=== PATIENT | female | born 1955 | race Caucasian/White ===

== ENCOUNTER 2017-11-02 10:30 | Outpatient (CLI) | payer MEDICARE ==
[2017-11-02 10:22] VITALS: BP 112/67
[~2017-11-02 10:30] MED LIST: CEPH500C5 PO; ONDA4TAB6 PO; SULF1TAB49 PO
== END 2017-11-02 11:45 | disposition home or self-care (01) ==
LOC: ORTHO 10:30
PROVIDERS: ATTEND Nurse Practitioner Family
DX: S82.831A Other fracture of upper and lower end of right fibula, initial encounter for closed fracture (principal); S82.391A Other fracture of lower end of right tibia, initial encounter for closed fracture; I10 Essential (primary) hypertension; E11.9 Type 2 diabetes mellitus without complications; Z88.8 Allergy status to other drugs, medicaments and biological substances; Z98.84 Bariatric surgery status; W01.0XXA Fall on same level from slipping, tripping and stumbling without subsequent striking against object, initial encounter; Y93.89 Activity, other specified; Y92.89 Other specified places as the place of occurrence of the external cause; Y99.8 Other external cause status
CPT/HCPCS: 73610; 99213; A4590

== ENCOUNTER 2017-11-16 11:22 | Outpatient (CLI) | payer MEDICARE ==
[2017-11-16 11:22] VITALS: BP 124/74
[~2017-11-16 11:22] MED LIST changes: -SULF1TAB49 PO
== END 2017-11-16 11:46 | disposition home or self-care (01) ==
LOC: ORTHO 11:22
PROVIDERS: ATTEND Nurse Practitioner Family
DX: S82.61XD Displaced fracture of lateral malleolus of right fibula, subsequent encounter for closed fracture with routine healing (principal); M77.31 Calcaneal spur, right foot; I10 Essential (primary) hypertension; E11.9 Type 2 diabetes mellitus without complications; M79.7 Fibromyalgia; M19.90 Unspecified osteoarthritis, unspecified site; Z88.6 Allergy status to analgesic agent; Z98.84 Bariatric surgery status; W01.198D Fall on same level from slipping, tripping and stumbling with subsequent striking against other object, subsequent encounter
CPT/HCPCS: 73610; 99213; A4590

== ENCOUNTER 2017-12-01 11:12 | Outpatient (CLI) | payer MEDICARE ==
[2017-12-01 11:17] VITALS: BP 121/69
== END 2017-12-01 11:45 | disposition home or self-care (01) ==
LOC: ORTHO 11:12
PROVIDERS: ATTEND Nurse Practitioner Family
DX: S82.831G Other fracture of upper and lower end of right fibula, subsequent encounter for closed fracture with delayed healing (principal); S82.391G Other fracture of lower end of right tibia, subsequent encounter for closed fracture with delayed healing; I10 Essential (primary) hypertension; M19.90 Unspecified osteoarthritis, unspecified site; M79.7 Fibromyalgia; E11.9 Type 2 diabetes mellitus without complications; Z88.6 Allergy status to analgesic agent; Z79.899 Other long term (current) drug therapy; W01.0XXD Fall on same level from slipping, tripping and stumbling without subsequent striking against object, subsequent encounter
CPT/HCPCS: 73610; 99213

== ENCOUNTER 2017-12-29 11:10 | Outpatient (CLI) | payer MEDICARE ==
[2017-12-29 11:11] VITALS: BP 130/71
== END 2017-12-29 11:43 | disposition home or self-care (01) ==
LOC: ORTHO 11:10
PROVIDERS: ATTEND Nurse Practitioner Family
DX: S82.831G Other fracture of upper and lower end of right fibula, subsequent encounter for closed fracture with delayed healing (principal); S82.391G Other fracture of lower end of right tibia, subsequent encounter for closed fracture with delayed healing; I10 Essential (primary) hypertension; M19.90 Unspecified osteoarthritis, unspecified site; E11.9 Type 2 diabetes mellitus without complications; Z88.6 Allergy status to analgesic agent; W01.0XXD Fall on same level from slipping, tripping and stumbling without subsequent striking against object, subsequent encounter
CPT/HCPCS: 73610; 99213

== ENCOUNTER 2018-01-25 10:41 | Outpatient (CLI) | payer MEDICARE ==
[2018-01-25 10:39] VITALS: BP 141/78
== END 2018-01-25 11:12 | disposition home or self-care (01) ==
LOC: ORTHO 10:41
PROVIDERS: ATTEND Nurse Practitioner Family
DX: S82.831K Other fracture of upper and lower end of right fibula, subsequent encounter for closed fracture with nonunion (principal); S82.391K Other fracture of lower end of right tibia, subsequent encounter for closed fracture with nonunion; I10 Essential (primary) hypertension; E11.9 Type 2 diabetes mellitus without complications; F12.90 Cannabis use, unspecified, uncomplicated; M19.90 Unspecified osteoarthritis, unspecified site; Z88.6 Allergy status to analgesic agent; Z88.8 Allergy status to other drugs, medicaments and biological substances; W01.0XXD Fall on same level from slipping, tripping and stumbling without subsequent striking against object, subsequent encounter
CPT/HCPCS: 73610; 99213

== ENCOUNTER 2018-03-28 10:49 | Outpatient (CLI) | payer MEDICARE ==
[2018-03-28 10:47] VITALS: BP 139/82
== END 2018-03-28 11:12 | disposition home or self-care (01) ==
LOC: ORTHO 10:49
PROVIDERS: ATTEND Nurse Practitioner Family
DX: S82.831K Other fracture of upper and lower end of right fibula, subsequent encounter for closed fracture with nonunion (principal); S82.391G Other fracture of lower end of right tibia, subsequent encounter for closed fracture with delayed healing; I10 Essential (primary) hypertension; M79.7 Fibromyalgia; M19.90 Unspecified osteoarthritis, unspecified site; E11.9 Type 2 diabetes mellitus without complications; W01.0XXD Fall on same level from slipping, tripping and stumbling without subsequent striking against object, subsequent encounter; Z88.8 Allergy status to other drugs, medicaments and biological substances
CPT/HCPCS: 73610; 99213

== ENCOUNTER 2018-04-25 10:21 | Outpatient (CLI) | payer MEDICARE ==
[2018-04-25 10:07] VITALS: BP 102/77
== END 2018-04-25 10:44 | disposition home or self-care (01) ==
LOC: ORTHO 10:21
PROVIDERS: ATTEND Nurse Practitioner Family
DX: S82.831G Other fracture of upper and lower end of right fibula, subsequent encounter for closed fracture with delayed healing (principal); S82.391G Other fracture of lower end of right tibia, subsequent encounter for closed fracture with delayed healing; M19.90 Unspecified osteoarthritis, unspecified site; M79.7 Fibromyalgia; E11.9 Type 2 diabetes mellitus without complications; I10 Essential (primary) hypertension; X58.XXXD Exposure to other specified factors, subsequent encounter
CPT/HCPCS: 73610; 99213

== ENCOUNTER 2018-05-24 11:50 | Outpatient (CLI) | payer MEDICARE | END 2018-05-24 13:35 | disposition home or self-care (01) | LOC: ORTHO 11:50 | PROVIDERS: ATTEND Orthopaedic Surgery | DX: S82.831G Other fracture of upper and lower end of right fibula, subsequent encounter for closed fracture with delayed healing (principal); X58.XXXD Exposure to other specified factors, subsequent encounter | CPT/HCPCS: 73610; G0463 ==

== ENCOUNTER 2018-06-03 19:46 | Emergency (ER) | payer MEDICARE ==
[~2018-06-03] VITALS: Ht 165.1 cm; Wt 84.9 kg
[2018-06-03 19:53] VITALS: BP 150/85
== END 2018-06-03 20:21 | disposition home or self-care (01) ==
LOC: ER 19:46
DX: R23.3 Spontaneous ecchymoses (principal); I10 Essential (primary) hypertension; E11.9 Type 2 diabetes mellitus without complications; Z90.49 Acquired absence of other specified parts of digestive tract; Z98.890 Other specified postprocedural states; Z88.8 Allergy status to other drugs, medicaments and biological substances; Z79.2 Long term (current) use of antibiotics; Z79.899 Other long term (current) drug therapy
CPT/HCPCS: 99281